=== PATIENT | female | born 1995 | race Caucasian/White ===

== ENCOUNTER 2017-08-12 00:59 | Emergency (ER) | payer OTHER ==
[2017-08-12] MEDS ORDERED: ACETAMINOPHEN 325 MG TABLET PO ONE (01:49)
--- NOTE | 2017-08-12 03:37 | RADIOLOGY REPORT (SQ) ---
EXAM DESCRIPTION: XR ANKLE 2 VIEWS COMPLETED DATE/TME: 08/12/2017 00:00 CLINICAL HISTORY: 22 years, Female, L ankle injury COMPARISON: None. FINDINGS: 3 views of the left ankle. No acute fracture or dislocation. Tibial plafond and talar dome have normal appearance. Base of fifth metatarsal is intact. Plantar calcaneal spur. Normal osseous mineralization. Mild soft tissue edema. IMPRESSION: No acute fracture or dislocation. 2010 [employer]- All Rights Reserved
--- NOTE | 2017-08-12 03:42 | ER Document Report ---
ED Extremity Problem, Lower - General Chief Complaint: Ankle Pain Stated Complaint: ANKLE PAIN Time Seen by Provider: 08/12/17 03:39 Mode of Arrival: Wheelchair Information source: Patient Notes: Patient is an otherwise healthy 22-year-old female who presents with acute left ankle pain after twisting her left ankle after she misstepped off of a step. Patient denies any history of trauma or surgeries to this area. Patient denies any past medical history. Patient reports that she put ice on it immediately after and that she is able to bear weight although is painful. - Related Data Allergies/Adverse Reactions: No Known Allergies Allergy (Unverified 08/12/17 03:25) Past Medical History - General Information source: Patient - Social History Smoking Status: Never Smoker Chew tobacco use (# tins/day): No Frequency of alcohol use: Occasional Drug Abuse: None Lives with: Family Family History: Reviewed & Not Pertinent Patient has suicidal ideation: No Patient has homicidal ideation: No - Medical History Medical History: Negative Renal/ Medical History: Denies: Hx Peritoneal Dialysis Surgical Hx: Negative - Immunizations Immunizations up to date: Yes Hx Diphtheria, Pertussis, Tetanus Vaccination: Yes Review of Systems - Review of Systems Constitutional: No symptoms reported EENT: No symptoms reported Cardiovascular: No symptoms reported Respiratory: No symptoms reported Gastrointestinal: No symptoms reported Genitourinary: No symptoms reported Female Genitourinary: No symptoms reported Musculoskeletal: See HPI Skin: No symptoms reported Hematologic/Lymphatic: No symptoms reported Neurological/Psychological: No symptoms reported Physical Exam - Vital signs Vitals: Temp Pulse Resp BP Pulse Ox 98.5 F 99 18 152/76 H 93 08/12/17 02:47 08/12/17 02:47 08/12/17 02:47 08/12/17 02:47 08/12/17 02:47 - Notes Notes: PHYSICAL EXAMINATION: GENERAL: Well-appearing, well-nourished and in no acute distress. LUNGS: Breath sounds clear to auscultation bilaterally and equal. No wheezes rales or rhonchi. HEART: Regular rate and rhythm without murmurs Musculoskeletal: Swelling noted to left ankle, decreased range of motion. Dorsalis pedis pulses are bounding. Cap refill less than 3 seconds. Positive sensation and motor assessment distal to injury. NEUROLOGICAL: Cranial nerves grossly intact. Normal speech, normal gait. Normal sensory, motor exams PSYCH: Normal mood, normal affect. SKIN: Warm, Dry, normal turgor, no rashes or lesions noted. Course - Re-evaluation Re-evalutation: 22-year-old female complaining of left ankle pain after a near fall in which she twisted her left ankle. X-rays unremarkable shows no fracture or dislocation. Will place patient in ankle stirrup with an Blane wrap, crutches and provide pain and anti-inflammatory control. Patient agrees to this plan of care. Patient will be discharged home in stable condition. - Vital Signs Vital signs: Temp Pulse Resp BP Pulse Ox 98.7 F 87 18 137/96 H 98 08/12/17 04:16 08/12/17 04:16 08/12/17 04:16 08/12/17 04:16 08/12/17 04:16 Procedures - Immobilization Left ankle Pre-Proc Neuro Vasc Exam: Normal Immobilizer type: Blane wrap, Ankle stirrup Performed by: PCT Post-Proc Neuro Vasc Exam: Normal Discharge - Discharge Clinical Impression: Left ankle injury Qualifiers: Encounter type: initial encounter Qualified Code(s): S99.912A - Unspecified injury of left ankle, initial encounter Condition: Stable Disposition: HOME, SELF-CARE Additional Instructions: Ankle Stirrup Splint You are to use an ankle brace called a stirrup splint. This type of brace allows you to place greater stresses on the ankle without risk of re-injury, and is often used for more severe ankle injuries such as avulsion fractures and ligament ruptures. The splint can be worn over a sock or tape. For proper support, wear the splint with a shoe over it. It's important that the splint fit properly. Adjust the heel tension, if needed. If your splint has air bladders, peel back the bottom of each air bladder, then move the Velcro attachment of the heel strap up or down. Air bladder pressure can be adjusted by pulling up the valve at the top, threading the air tube down into the main bladder, then blowing air into the bladder or squeezing it out. The two sides of the stirrup can be moved forward or back on your ankle by changing the attachment of the main straps. If you are unable to use the ankle comfortably in the splint, return for re -evaluation. Blane Wrap A compression dressing (blane wrap) has been placed. This helps hold the area still. It limits swelling and internal bleeding. The wrap should be comfortably snug -- not tight. You should feel a sense of pressure, but not severe pain under the wrap. Unless the physician tells you otherwise, you can adjust the wrap for comfort. If the wrap causes symptoms suggesting it's too tight -- uncomfortable pressure, swelling or discoloration beyond the wrap, numbness, or severe pain - - you must loosen the wrap. If these symptoms don't resolve promptly, return for re-evaluation. Ice & Elevation Apply ice packs frequently against the painful area. Many different schedules are recommended, such as "20 minutes on, 20 minutes off" or "one hour ice, two hours rest." If you need to work, you may need to go longer between ice treatments. You should plan to have the area ice packed AT LEAST one- fourth of the time. The ice should be applied over the wrap, tape, or splint, or over a layer of cloth -- not directly against the skin. Some ice bags have a built-in cloth and can be put directly on the skin. Your injured part should be elevated as much as possible over the next 48 hours. Try to keep the injury above the level of the heart. Avoid use of the injured area. Elevation and rest will decrease the swelling. Your x-ray today was negative for any fractures or dislocation. Please wear the stirrup splint and use the Blane wrap for comfort and support. Follow the directions above to ice your ankle for the next few days. One of the most important parts of healing is elevating the extremity as much as possible for the next 48 hours. Take Tylenol or ibuprofen as needed for pain and inflammation.
[2017-08-12] MEDS ORDERED: OXYCODONE HCL IR 5 MG TABLET PO ONE (04:01)
[2017-08-12 04:16] VITALS: BP 137/96
== END 2017-08-12 04:17 | disposition home or self-care (01) ==
LOC: ER 00:59
PROC: 2W3RX1Z Immobilization of Left Lower Leg using Splint (ICD-10-PCS; principal; 2017-08-12)
DX: S99.912A Unspecified injury of left ankle, initial encounter (principal); X50.0XXA Overexertion from strenuous movement or load, initial encounter
CPT/HCPCS: 99283; 73610; L1902